=== PATIENT | male | born 1975 | race African-American/Black ===

== ENCOUNTER 2024-06-04 13:31 | Inpatient (IN) | payer OTHER, SELFPAY ==
[2024-06-03 22:41] VITALS: BP 173/102; BMI 34.8
[2024-06-03 22:43] VITALS: BP 173/102
[2024-06-03] MEDS: BENADRYL 50 MG IV (22:47)
[2024-06-03] MEDS: PEPCID 20 MG IV (22:47)
[2024-06-03] MEDS: NSS 1000 IV (22:47)
[2024-06-03] MEDS: DECADRON 10 MG IV (22:47)
[2024-06-03] MEDS: ADRENALIN 0.3 MG IM (22:47)
--- NOTE | 2024-06-03 22:58 | ED.GENMED ---
History of Present Illness
<ANGELLA Karimi - Last Filed: 06/04/24 07:07>
General
Chief Complaint: Allergic Reaction
Source: patient and significant other
Exam Limitations: none
Time Seen by Provider: 06/03/24 22:43
Nursing documentation reviewed up to this point in time: agreed with
History of Present Illness
History of Present Illness:
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 Pt states he was at home in the shower when the episode began. Pt's states they ate tuna, chickpeas and greens for dinner
and used a new seasoning, but they have used it before without reaction like this. Pt states he took Benadryl and administered his Epipen, along with use of his albuterol inhaler before arrival to the ED. Pt is currently experiencing angioedema. Pt
denies n/v/d, chest pain, abdominal pain, numbness/tingling in extremities.
Past History
<ANGELLA Karimi - Last Filed: 06/04/24 07:07>
Past History
ED Past Medical History: Asthma and HTN
ED Past Surgical History: None
Patient has exhibited threatening behavior?: No
Social History
Tobacco: Non-smoker
Alcohol: Daily
Drug: None
Personal:
Living: with family
Employment: Not employed
Family History
Family History: Hypertension and Cancer
Review of Systems
<ANGELLA Karimi - Last Filed: 06/04/24 07:07>
Review of Systems
Allergies reviewed?: Yes
Constitutional: Denies fever, fatigue or chills
EENT: Reports tearing, mouth swelling, runny nose and other (periorbital edema)
Respiratory: Reports trouble breathing
Cardiac: Denies chest pain, palpitations or syncope
ABD/GI: Denies abdominal pain, nausea, vomiting or diarrhea
: Denies incontinence
Skin: Reports itching
Neurological: Denies headache, weakness or numbness
Phy Exam
<ANGELLA Karimi - Last Filed: 06/04/24 07:07>
General Physical Exam
General Presentation: severe distress
General age: appears stated age
General Skin: diaphoretic, feels hot and flushed
General Habitus: normal
General Mental: alert and anxious
ENT Exam
ENT Exam: other (tracheal edema)
Additional ENT: angioedema presents, excessive clear nasal discharge
Eye Exam
Eye Exam: other (severe periorbital edema b/l, tearful)
Eyelid Exam: edematous: Bilateral
Cardiovascular Exam
Cardiovascular Exam: no murmur and tachycardia
Heart Sounds: normal
Pulmonary Exam
Pulmonary Exam: lungs clear and no stridor
Respiratory Effort: hyperventilation (24 breaths/min)
Respirations: moderate effort and rapid
Neurological Exam
Neurological Exam: alert and oriented x3
Course
<ANGELLA Karimi - Last Filed: 06/04/24 07:07>
Orders/Labs/Results
Orders:
Orders
06/03/24 22:43
Cardiac Monitoring- Treatment ONCE
0.9% Sodium Chloride 1000 ml [Nss] 1,000 ml IV BOLUS
Dexamethasone Sod Phosphate [Decadron] 10 mg IV NOW STA
Diphenhydramine [Benadryl] 50 mg IV NOW STA
EPINEPHrine PF [Adrenalin] 0.3 mg IM NOW STA
Famotidine [Pepcid] 20 mg IV NOW STA
Pulse Ox/cont/shift [RESP] Stat
Quantity: 1
06/03/24 23:23
Ipratropium/Albuterol Sulfate [Duoneb] 3 ml .ROUTE .STK-MED ONE
06/03/24 23:34
Ipratropium/Albuterol Sulfate [Duoneb] 3 ml INH R NOW ONE
06/03/24 23:42
EPINEPHrine 4 mg/250 mL NSS [Adrenalin] 4 mg in 250 ml IV NOW
Initial dose in mcg/min, then titrate:: 5
Titrate to keep:: Other
Titrate to keep other:: anaphylaxis
Titrate by mcg/min:: 0.5-1 mcg/min
Frequency of titrations (minutes):: 5
Maximum dose in mcg/min:: 10
Begin to taper infusion when:: Remained at goal for 4hrs
Taper by mcg/min:: 0.5-1 mcg/min
Frequency of taper (minutes) if patient maintains goal:: 30
Taper to off?: Yes
If infusion off & no longer maintaining goal:: Contact Provider
06/04/24 03:16
Admit/Transfer Patient As Directed
Co-Sign Provider:
Level of Care: Observation services
Assign to:: ICU
Physician / Group: hospitalist
Diagnosis: allergic reaction
PRN Pain Medication Management As Directed
May give lesser potent ordered pain med per pt: Yes
preference::
Protocol:: Medication orders for pain may be administered in a
manner that supports deferring to patient preference
when the pt is:
- Requesting an ordered lesser potent pain medication.
Least to most potent pain medications are defined
as: acetaminophen < NSAID < tramadol < opioids
(morphine, oxycodone, hydromorphone).
- Requesting a lesser dose of the same medication IF
ORDERED.
- Requesting a less intrusive route of administration
if both routes are prescribed by the provider (PO <
IV).
06/04/24 03:17
Code Status As Directed
Resuscitation Status: Full Code
06/04/24 03:32
PRN Pain Medication Management As Directed
May give lesser potent ordered pain med per pt: Yes
preference::
Protocol:: Medication orders for pain may be administered in a
manner that supports deferring to patient preference
when the pt is:
- Requesting an ordered lesser potent pain medication.
Least to most potent pain medications are defined
as: acetaminophen < NSAID < tramadol < opioids
(morphine, oxycodone, hydromorphone).
- Requesting a lesser dose of the same medication IF
ORDERED.
- Requesting a less intrusive route of administration
if both routes are prescribed by the provider (PO <
IV).
06/04/24 05:37
0.9% Sodium Chloride 1000 ml [Nss] 1,000 ml IV 75 mls/hr
Acetaminophen [Tylenol] 650 mg PO Q4HPRN PRN
EPINEPHrine 4 mg/250 mL NSS [Adrenalin] 4 mg in 250 ml IV PER PROTOCOL
Currently infusing. Continue current dose and titrate:: Yes
Titrate to keep:: MAP > 65 mmHg
Titrate by mcg/min:: 0.5-1 mcg/min
Frequency of titrations (minutes):: 5
Maximum dose in mcg/min:: 10
Begin to taper infusion when:: Remained at goal for 4hrs
Taper by mcg/min:: 0.5-1 mcg/min
Frequency of taper (minutes) if patient maintains goal:: 30
Taper to off?: Yes
If infusion off & no longer maintaining goal:: Contact Provider
Ondansetron Injectable [Zofran] 4 mg IV Q6HPRN PRN
06/04/24 05:37
Consult Notification Routine
Specialty to Notify: Dealer Support Technician
Dealer Support Technician Consult Routine
Consulting Provider: Cayden Mills
Was physician already notified: No
Reason for consult: anaphylaxis
Activity As Directed
Activity Level: With Assistance
Pneumatic Compression Sleeves As Directed
Type: Knee high
Vital Signs As Directed
Frequency: Per unit guidelines
DX Deep Vein Thrombosis Video Routine
06/04/24 Breakfast
NPO
Allow oral meds: Yes
Allow clear liquids: Sips of Clears
NPO with Ice Chips: Yes
Diphenhydramine [Benadryl] 25 mg IV Q6H
06/04/24 08:00
Albuterol Nebs [Ventolin Nebules] 2.5 mg INH R QID
06/04/24 18:00
Enoxaparin Sodium [Lovenox] 40 mg SC QPM
Vital Signs
Initial and Last Documented VS:
Initial Vital Signs
Pulse Resp BP Pulse Ox
125 24 173/102 95
06/03/24 22:41 06/03/24 22:41 06/03/24 22:41 06/03/24 22:41
Last Documented Vital Signs
Temp Pulse Resp BP Pulse Ox
97.7 F 67 21 118/81 96
06/04/24 07:36 06/04/24 07:30 06/04/24 07:30 06/04/24 07:00 06/04/24 07:22
<Monica Warner, DO - Last Filed: 06/04/24 07:48>
Orders/Labs/Results
Orders:
Orders
06/03/24 22:43
Cardiac Monitoring- Treatment ONCE
0.9% Sodium Chloride 1000 ml [Nss] 1,000 ml IV BOLUS
Dexamethasone Sod Phosphate [Decadron] 10 mg IV NOW STA
Diphenhydramine [Benadryl] 50 mg IV NOW STA
EPINEPHrine PF [Adrenalin] 0.3 mg IM NOW STA
Famotidine [Pepcid] 20 mg IV NOW STA
Pulse Ox/cont/shift [RESP] Stat
Quantity: 1
06/03/24 23:23
Ipratropium/Albuterol Sulfate [Duoneb] 3 ml .ROUTE .STK-MED ONE
06/03/24 23:34
Ipratropium/Albuterol Sulfate [Duoneb] 3 ml INH R NOW ONE
06/03/24 23:42
EPINEPHrine 4 mg/250 mL NSS [Adrenalin] 4 mg in 250 ml IV NOW
Initial dose in mcg/min, then titrate:: 5
Titrate to keep:: Other
Titrate to keep other:: anaphylaxis
Titrate by mcg/min:: 0.5-1 mcg/min
Frequency of titrations (minutes):: 5
Maximum dose in mcg/min:: 10
Begin to taper infusion when:: Remained at goal for 4hrs
Taper by mcg/min:: 0.5-1 mcg/min
Frequency of taper (minutes) if patient maintains goal:: 30
Taper to off?: Yes
If infusion off & no longer maintaining goal:: Contact Provider
06/04/24 03:16
Admit/Transfer Patient As Directed
Co-Sign Provider:
Level of Care: Observation services
Assign to:: ICU
Physician / Group: hospitalist
Diagnosis: allergic reaction
PRN Pain Medication Management As Directed
May give lesser potent ordered pain med per pt: Yes
preference::
Protocol:: Medication orders for pain may be administered in a
manner that supports deferring to patient preference
when the pt is:
- Requesting an ordered lesser potent pain medication.
Least to most potent pain medications are defined
as: acetaminophen < NSAID < tramadol < opioids
(morphine, oxycodone, hydromorphone).
- Requesting a lesser dose of the same medication IF
ORDERED.
- Requesting a less intrusive route of administration
if both routes are prescribed by the provider (PO <
IV).
06/04/24 03:17
Code Status As Directed
Resuscitation Status: Full Code
06/04/24 03:32
PRN Pain Medication Management As Directed
May give lesser potent ordered pain med per pt: Yes
preference::
Protocol:: Medication orders for pain may be administered in a
manner that supports deferring to patient preference
when the pt is:
- Requesting an ordered lesser potent pain medication.
Least to most potent pain medications are defined
as: acetaminophen < NSAID < tramadol < opioids
(morphine, oxycodone, hydromorphone).
- Requesting a lesser dose of the same medication IF
ORDERED.
- Requesting a less intrusive route of administration
if both routes are prescribed by the provider (PO <
IV).
06/04/24 05:37
0.9% Sodium Chloride 1000 ml [Nss] 1,000 ml IV 75 mls/hr
Acetaminophen [Tylenol] 650 mg PO Q4HPRN PRN
EPINEPHrine 4 mg/250 mL NSS [Adrenalin] 4 mg in 250 ml IV PER PROTOCOL
Currently infusing. Continue current dose and titrate:: Yes
Titrate to keep:: MAP > 65 mmHg
Titrate by mcg/min:: 0.5-1 mcg/min
Frequency of titrations (minutes):: 5
Maximum dose in mcg/min:: 10
Begin to taper infusion when:: Remained at goal for 4hrs
Taper by mcg/min:: 0.5-1 mcg/min
Frequency of taper (minutes) if patient maintains goal:: 30
Taper to off?: Yes
If infusion off & no longer maintaining goal:: Contact Provider
Ondansetron Injectable [Zofran] 4 mg IV Q6HPRN PRN
06/04/24 05:37
Consult Notification Routine
Specialty to Notify: Dealer Support Technician
Dealer Support Technician Consult Routine
Consulting Provider: Cayden Mills
Was physician already notified: No
Reason for consult: anaphylaxis
Activity As Directed
Activity Level: With Assistance
Pneumatic Compression Sleeves As Directed
Type: Knee high
Vital Signs As Directed
Frequency: Per unit guidelines
DX Deep Vein Thrombosis Video Routine
06/04/24 Breakfast
NPO
Allow oral meds: Yes
Allow clear liquids: Sips of Clears
NPO with Ice Chips: Yes
Diphenhydramine [Benadryl] 25 mg IV Q6H
06/04/24 08:00
Albuterol Nebs [Ventolin Nebules] 2.5 mg INH R QID
06/04/24 18:00
Enoxaparin Sodium [Lovenox] 40 mg SC QPM
Vital Signs
Initial and Last Documented VS:
Initial Vital Signs
Pulse Resp BP Pulse Ox
125 24 173/102 95
06/03/24 22:41 06/03/24 22:41 06/03/24 22:41 06/03/24 22:41
Last Documented Vital Signs
Temp Pulse Resp BP Pulse Ox
97.7 F 67 21 118/81 96
06/04/24 07:36 06/04/24 07:30 06/04/24 07:30 06/04/24 07:00 06/04/24 07:22
<ANGELLA Karimi - Last Filed: 06/04/24 07:07>
MDM/Problems Addressed
Differential Diagnosis Includes:
anaphylaxis, respiratory decompensation
Chronic conditions affecting care: Immunosuppressed (chronic allergies)
<ANGELLA Karimi - Last Filed: 06/04/24 07:07>
*Critical Care Note
Total Time (30-74mins, 75-104mins- exclusive of procedures): 60 min
<DO Kd Marshall Last Filed: 06/04/24 07:48>
*Pulse Oximetry
Patient hypoxic: no
*Actuarial Director Interpretation
Rate: tachycardiac
Interpretation: abnormal
Rhythm: sinus
*Critical Care Note
comment:
Critical care statement: A total of 60 minutes of critical care time was provided for this patient. This includes management of unstable vital signs, evaluation of the patient at bedside, reviewing the patient's pertinent medical records, discussion
with consultants, review of old EKGs and review of pertinent medical records. This time with separate from time utilized to perform the aforementioned documented procedures
ED Attending Note
<ANGELLA Karimi - Last Filed: 06/04/24 07:07>
-
Portions of this chart may have been created with voice recognition software.� Occasional wrong word or��sound alike� substitutions may have occurred due to the inherent limitations of voice recognition software.
<Monica Warner DO - Last Filed: 06/04/24 07:48>
ED Attending Note
Patient seen and examined by attending physician: Yes
I performed the substantive portion of visit, reviewed & personally made and approve the management plan that is documented in note by myself or IDA.: Yes
ED Attending Note:
This is a 48-year-old gentleman who has history of asthma, hypertension as well as history of multiple food allergies with anaphylaxis. He presents with abrupt onset of anaphylactic reaction that began just prior to arrival. He administered his
EpiPen and took 50 mg of Benadryl just prior to arrival. He states EpiPen was . He complains of generalized itching, hives, periorbital edema, throat swelling and sneezing. He has had similar allergic reactions in the past with similar
presentation to this ED November 2022.
He denies abdominal pain nor nausea, denies diarrhea.
He is unclear as to the exact trigger of his allergic reaction.
GENERAL: 48-year-old overweight gentleman appears his stated age, appears in moderate distress, frequent sneezing but able to speak in full sentences. Moderately anxious. is at bedside.
EYE: Moderate bilateral periorbital edema/angioedema. Moderate tearing bilateral eyes.
NECK: Supple, nontender, no meningismus, no significant adenopathy.
ENT: Mild uvular edema with mild uvular injection but no airway compromise, oral mucosa is moist. TM clear b/l, nares have moderate clear rhinorrhea.
CARDIAC: Regular rhythm, mildly tachycardic. no murmur.
LUNGS: Clear breath sounds bilaterally, no acute respiratory distress, no wheezes/rales/rhonchi
ABDOMEN: Soft, nondistended, without focal tenderness, normoactive BS.
NEUROLOGICAL: Alert and oriented x3, no focal neuro deficits. Gait is steady.
SKIN: Warm and dry, normal color, skin intact. Scattered urticarial wheals.
MUSCULOSKELETAL: No C/C/E. peripheral pulses are full and equal b/l. No palpable tenderness.
PSYCH: Mildly anxious. Easily communicative.
Patient presents with acute allergic reaction/anaphylactic reaction.
Will give an additional IM dose of epinephrine along with IV fluids, IV Benadryl, Pepcid, Decadron.
Thus far hemodynamically stable and no respiratory distress, airway is patent.
Will continue to monitor closely.
At this point no indication for laboratory studies nor imaging.
23:45
Patient continues with significant nasal congestion, periorbital edema and moderate uvular edema. He remains hemodynamically stable.
Has been given DuoNeb nebulizer for onset of mild wheezing.
Will initiate epi drip for continued anaphylaxis.
02:15
Hives have nearly resolved.
Patient resting comfortably, hemodynamically stable with no further tachycardia nor hypertension.
Continues with moderate periorbital angioedema as well as mild posterior pharyngeal angioedema, improved but has not resolved.
Although improved, due to persistent symptoms will admit to hospitalist service for continued close observation.
Discharge Plan
Departure
Patient Disposition: Admit
Date of Disposition: 06/04/24
Time of Disposition: 02:19
Admit to: ICU
Admit to doctor: Allison
Presentation/result/management discussed w/ accepting MD/DO: Hospitalist
Condition: Serious
Discharge Problem:
Anaphylaxis
Interventions
Interventions:
*Risk Screen - Suicide Last Done: 06/03/24 23:03
*General Assessment Last Done: 06/03/24 22:41
*Neglect/Abuse Screening Last Done: 06/03/24 23:38
ED- Fall Risk Assessment Last Done: 06/03/24 23:07
*ED COVID-19 Vaccine History Last Done: 06/03/24 22:41
*Nursing Disposition Last Done: 06/04/24 05:06
ED- Cardiac Assessment Last Done: 06/03/24 23:07
ED- Pulmonary Assessment Last Done: 06/03/24 23:07
ED-Skin Assessment Last Done: 06/03/24 23:07
Discharge Date and Time
Discharge Date/Time: 06/04/24 05:07
[2024-06-03 23:00] VITALS: BP 146/85
[2024-06-03] MEDS: DUONEB 3 ML INH (23:34)
[2024-06-03 23:50] VITALS: BP 140/80
[2024-06-03] MEDS: ADRENALIN 250 IV (23:57)
[2024-06-04] VITALS (20 sets, daily range): BP systolic 118–146; BP diastolic 69–89; BMI 33.5
--- NOTE | 2024-06-04 03:06 | HPS.HSE ---
Family Physician
-
Family Physician: NOT KNOW UNKNOWN - PT DOES
Chief Complaint
-
Allergic reaction
History of Present Illness
This is a 48-year-old with past medical history of anaphylaxis with food allergies, hypertension, asthma who experienced anaphylactic episode a few minutes prior to coming to the emergency department.
Patient reported that he had soon male blood was unsure what it was contaminated with nuts. He developed a sensation of itchy nostrils which often is the initial symptom of with severe anaphylactic episode. He gave himself the EpiPen at home, 2
doses of Benadryl and then came to the emergency department. He reported having some wheezing. On arrival in the emergency department he had significant periorbital angioedema and moderate postpharyngeal angioedema with wheezing.
Has received 3mg epi IM and placed on epi gtt in ED. Rceived IV decadron, benadryl and duonebs. Acccording to spouse patient is significantly improved. He feels better. No more wheezing. Reports some sensation the posterior pharynx.
Medical History
Past Medical History
Past Medical History: Reports Asthma
Additional Past Medical History:
Allergy w/ anaphylaxis
Past Surgical History: Reports None
Social History
Tobacco: Non-smoker
Alcohol: Daily
Drug: None
Personal:
Living: With Family
Employment: Employed
Family History
Family History: Not pertinent
Allergies / Home Medications
Allergies reflects when Allergies were last updated in [facility].
Home Medications with original date entered in [facility]
Allergy/Medication List:
Allergies
Allergy/AdvReac Type Severity Reaction Status Date / Time
nut - unspecified Allergy Severe Anaphylaxis Verified 06/03/24 22:56
fish derived Allergy Unknown Verified 06/03/24 22:56
peanut Allergy Anaphylaxis Verified 06/03/24 22:56
Penicillins Allergy Unknown Verified 06/03/24 22:56
Home Medications
diphenhydramine HCl 25 mg capsule (Benadryl) 25 mg PO TID PRN allergy symptoms #20 caps 12/25/22
epinephrine 0.3 mg/0.3 mL injection, auto-injector (EpiPen) 0.3 mg (0.3 mL) IM .STAT PRN anaphylaxis #2 ea 12/25/22
prednisone 50 mg tablet 50 mg PO DAILY #4 tabs 12/25/22
epinephrine 0.3 mg/0.3 mL injection, auto-injector (EpiPen) 0.3 mg (0.3 mL) IM .STAT PRN anaphylaxis #1 ea 04/21/23
prednisone 50 mg tablet 50 mg PO DAILY #4 tabs 04/21/23
Review of Systems
-
History Source: Patient and Family
Constitutional: Reports No Symptoms
EENT: Reports Mouth Swelling
Respiratory: Reports Trouble Breathing
Cardiac: Reports No Symptoms
Abdomen/GI: Reports No Symptoms
: Reports No Symptoms
Musculoskeletal: Reports No Symptoms
Skin: Reports No Symptoms
Neurological: Reports No Symptoms
Endocrine: Reports No Symptoms
Hematologic/Lymphatic: Reports No Symptoms
Psych: Reports No Symptoms
Physical Exam
Vital Signs
Vital Signs
Pulse Resp BP Pulse Ox
82 20 140/77 96
06/04/24 02:15 06/04/24 02:15 06/04/24 02:00 06/04/24 02:15
Physical Exam
General: Well Developed, Well Nourished, Comfortable and Conversant
HEENT: Anicteric, Moist mucous membranes, Atraumatic, PERRLA, Pharyngeal Erythema and Other (Periorbital edema bilaterally. There is palatal and pharyngeal edema. No tongue swelling. No lip swelling.)
Respiratory: Clear
Cardiac: S1/S2 and Regular Rhythm
Breast: Deferred by me
GI: Soft, Non Tender and Non Distended
Rectal: Deferred by Provider
Genito-urinary: Deferred by me
Musculoskeletal: No Clubbing, No Cyanosis and No Edema
Skin: Warm
Neuro: AO x 3
Hematologic/Lymphatic: No Lymphadenopathy
Psych: Calm
Data Reviewed
-
Lab Data: Discussed with Physician
Old Records: Reviewed
Impression/Plan
-
IMPRESSION:
Acute allergic episode with anaphylaxis. BP maintained throughout and no airway compromise. Currently remains with periorbital swelling and mild palato-pharyngeal edema. No stridor and no wheezes. No current airway edema or compromise.
- admit to ICU observation
- s/p 3mg IM epinephrine. On epi gtt. Continue infusion at 0.1mcg/kg/minute titrating according to BP and cardiac rate. Will titrate off in 4 - 8 hours if HD stable.
- s/p NS bolus. HD stable. NPO for now. Continue NS at 75ml/hr
- s/p diphenydramine 50mg, continue 25mg iv q6 for now
- s/p decadrone. Daily dose given. consider repeat dosing in 12 hours
- continue albuterol q 6 RTC and prn
- consult pin ticket machine operator
DVT PPX - SCDs
Code Status - Full Code
[2024-06-04 05:31] LABS: Hematocrit 38.6 % (39.0-52.0); Hemoglobin 12.1 g/dL (13.0-18.0); Mean Corp Hgb Conc. 31.3 g/dL (33.0-37.0); Mean Corpuscular Hgb 30.3 pg (27.0-31.0); Mean Corpuscular Volume 96.7 fL (80.0-94.0); Mean Platelet Volume 10.1 fL (7.4-10.4); Platelet Count 294 10^3/uL (130-400); Red Blood Cell Count 3.99 10^6/uL (4.70-6.10); Red Cell Dist. Width 12.1 % (11.5-14.5); White Blood Cell Count 11.7 10^3/uL (4.8-10.8)
[2024-06-04 05:42] LABS: Blood Urea Nitrogen 16 mg/dl (9-20); Calcium 9.8 mg/dl (8.4-10.2); Carbon Dioxide 22 mmol/L (22-30); Chloride 105 mmol/L (98-107); Estimated Creatinine Clearance > 125 ml/min; Glucose 161 mg/dl (70-99); Magnesium 1.6 mg/dl (1.6-2.3); Potassium 4.3 mmol/L (3.5-5.1); Sodium 142 mmol/L (135-145); eGFR > 60.00
--- NOTE | 2024-06-04 05:49 | PTCARENOTE ---
Pt admit from ED via stretcher. Moved from stretcher to bed independently. NSR on monitor. Epi gtt turned off after BP checked and was 131/77. Bilat orbital edema noted. Pt denies difficulty breathing or swallowing. Assessment as charted.
[2024-06-04] MEDS: NSS 1000 IV (05:55)
[2024-06-04] MEDS: BENADRYL 25 MG IV ×3 (05:56→17:00)
[2024-06-04 06:04] LABS: APTT 24.4 Sec (23.4-35.0); INR 1.04; PT 13.9 Sec (11.4-14.6)
[2024-06-04] MEDS: VENTOLIN NEBULES 2.5 MG INH ×4 (07:19→20:20)
--- NOTE | 2024-06-04 08:25 | PTCARENOTE ---
Rec'd pt at 0700. Pt AAOx3, follows commands, VERDUGO. Denies any pain/SOB. +Orbital edema, pt c/o mild itching but tolerable. No oral edema noted. Monitor SBR/SR. Lungs CTA. +BS, abd soft/nt. NPO at this time until seen by speech. Vdg yellow urine via
urinal. at bedside, updated.
[2024-06-04] MEDS: DECADRON 4 MG IV ×2 (08:27→17:02)
[2024-06-04] MEDS: NSS (PRESERVATIVE FREE) 8 ML IV ×2 (09:29→20:04)
[2024-06-04] MEDS: PEPCID 20 MG IV ×2 (09:29→20:03)
--- NOTE | 2024-06-04 09:46 | CON.INTV ---
Consultation
Consultation Request
Date/Time Consultation Requested: 06/04/2024536
Date/Time Consultation Performed: 06/04/2024819
Requesting Provider: Dr. Cooper
Performing Provider: Dr. Mills
Reason for Consultation: Anaphylaxis
Medical History
-
Chief Complaint: Facial swelling + hives
History of Present Illness:
48-year-old male non-smoker with a past medical history of severe nut allergy, allergic rhinitis, mild intermittent asthma, and ENRIQUE on CPAP who presents with facial swelling and hives. He does not know what he ate but he believes he had exposure to
nuts possibly from a tuna steak that he ate with some seasoning. He took 100 mg of Benadryl at home and administered EpiPen and inhaler. He also endorsed wheezing. He had periorbital edema in the ER with pharyngeal edema with wheezing. In the ER
he was tachycardic to 125, breathing at 24 breaths/min, BP 173/102 and saturating 95% on room air. Labs showed mild leukocytosis to 11.7 and Hb 12.1. CXR showed no acute disease of the chest. In the ER he was given Benadryl, Decadron, Pepcid,
DuoNebs, 1 L NS 0.9%, epinephrine 0.3 mg and then started on a epinephrine drip. He was then admitted to the ICU for further care and elastic attacher zigzag services consulted for additional management/recommendations.
When I saw the patient this morning he was off the epinephrine drip and he is feeling better. His , Leeanne, was at bedside and all questions were answered. Patient's heart rate is 81 and BP is 118/81. He currently denies chest pain,
difficulty breathing, CALLE, nausea, fevers or chills.
Of note, patient had previously seen us in the office in August [address] Gamez for ENRIQUE. At that time he was using his CPAP. Also has a history of mild intermittent asthma that was controlled without inhalers. In epic it was prescribed to him
at that time to be used as needed. He was told to follow-up with us in 6 weeks but this never happened.
PMHx: Coronary laceration (2000), allergic rhinitis, ENRIQUE on CPAP (diagnosed with ENRIQUE in 2015 at [facility]), mild intermittent asthma not on inhalers
PSHx: Eyelid growth removal (right eye)
Past Medical History
Past Medical History: Other (Above as per HPI)
Past Surgical History: Other (Above as per HPI)
Social History
Tobacco: Non-smoker
Alcohol: Occasional
Drug: None
Personal:
Living: With Family
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
Family History
Family History: Cancer (Mother (unknown type)), Hypertension (Father, mother paternal grandparents and paternal uncle) and Other (Father: Renal failure)
Allergies / Home Medications
Allergies
Allergy/AdvReac Type Severity Reaction Status Date / Time
nut - unspecified Allergy Severe Anaphylaxis Verified 06/03/24 22:56
fish derived Allergy Unknown Verified 06/03/24 22:56
peanut Allergy Anaphylaxis Verified 06/03/24 22:56
Penicillins Allergy Unknown Verified 06/03/24 22:56
Home Medications
�Medication �Instructions �Recorded �Confirmed �Last Taken �Type
diphenhydramine HCl 25 mg capsule 25 mg PO TID PRN allergy symptoms 12/25/22 Unknown Rx
(Benadryl) #20 caps
epinephrine 0.3 mg/0.3 mL 0.3 mg (0.3 mL) IM .STAT PRN 12/25/22 Unknown Rx
injection, auto-injector (EpiPen) anaphylaxis #2 ea
prednisone 50 mg tablet 50 mg PO DAILY #4 tabs 12/25/22 Unknown Rx
epinephrine 0.3 mg/0.3 mL 0.3 mg (0.3 mL) IM .STAT PRN 04/21/23 Unknown Rx
injection, auto-injector (EpiPen) anaphylaxis #1 ea
prednisone 50 mg tablet 50 mg PO DAILY #4 tabs 04/21/23 Unknown Rx
Review of Systems
-
History Source: Patient
All other systems: Negative unless noted
Vitals / Labs / Diagnostic Testing
Vital Signs
Temp Pulse Resp BP Pulse Ox
97.7 F 67 21 118/81 96
06/04/24 07:36 06/04/24 07:30 06/04/24 07:30 06/04/24 07:00 06/04/24 07:22
Lab Data
06/04/24 04:56
06/04/24 04:56
Laboratory Results
06/04/24
04:56
PT 13.9
INR 1.04
APTT 24.4
Diagnostic Testing:
Physical Exam
-
HEENT: Normocephalic and Anicteric
Cardiovascular: S1/S2, Rub (negative) and Peripheral Edema (negative)
Respiratory: Wheeze (negative), Rales (negative), Rhonchi (negative) and Non-Labored Respirations
GI: Soft, Non Distended, Non Tender and Normal Bowel Sounds
Neurology: AO x 3 and Tremors (negative)
Skin: Warm and Dry
General: Respiratory Distress (negative), Comfortable, Fever (negative) and Chills (negative)
Assessment
-
Assessment: 48-year-old male non-smoker with a past medical history of severe nut allergy, allergic rhinitis, mild intermittent asthma, and ENRIQUE on CPAP who presents with facial swelling and hives. He does not know what he ate but he believes he
had exposure to nuts possibly from a tuna steak that he ate with some seasoning. He took 100 mg of Benadryl at home and administered EpiPen and inhaler. He also endorsed wheezing. He had periorbital edema in the ER with pharyngeal edema with
wheezing. In the ER he was tachycardic to 125, breathing at 24 breaths/min, BP 173/102 and saturating 95% on room air. Labs showed mild leukocytosis to 11.7 and Hb 12.1. CXR showed no acute disease of the chest. In the ER he was given Benadryl,
Decadron, Pepcid, DuoNebs, 1 L NS 0.9%, epinephrine 0.3 mg and then started on a epinephrine drip. He was then admitted to the ICU for further care and elastic attacher zigzag services consulted for additional management/recommendations.
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
Impression:
#Acute anaphylactic reaction s/p epinephrine IM currently on epinephrine drip
#Leukocytosis likely reactive due to above
#Anemia
#History of peanut + shellfish allergy
#History of mild intermittent asthma not on inhalers
#History of allergic rhinitis/conjunctivitis
#ENRIQUE on CPAP
Plan:
- Now off epinephrine drip; continue to monitor respiratory status closely as he remains low threshold to be intubated if Sx return
- Continue with Benadryl + Pepcid + steroids (currently on Decadron 4 mg IV q8hr)
- Wean down on systemic steroids as he clinically continues to improve
- Maintain euglycemia while on high-dose steroids with goal BG 140�180
- Check tryptase level and total IgE
- Trend WBC; appears nontoxic, hence hold off on antibiotics at this time; monitor for fevers
- Maintain SpO2 >90-94% - currently on RA breathing comfortably
- Maintain MAP>65
- Replete electrolytes with K>4, Mg>2
- Maintain euglycemia with goal BG 140-180
- Trend H/H and transfuse if needed to keep Hb>7g/dL; keep plt>20k, unless there is concern for bleeding then keep plt>50k
- prn nebulized bronchodilators - not currently bronchospastic
- Incentive spirometer encouraged 10x per hour for at least 4 hrs a day
- DVT ppx: LMWH
Outpatient follow-up will be arranged given his history of ENRIQUE on CPAP and he previously had seen us in 2021 w/ Dr. Gamez.
Critical care statement: A total of 40 minutes of critical care time was provided for this patient today. This includes management of unstable vital signs, evaluation of the patient at bedside, reviewing the patient's pertinent medical records
including radiographs, microbiology, laboratory evaluations, and discussion with primary team, consultants, pharmacy, nutrition, physical therapy, case management, charge nurse, critical care nursing, and respiratory therapy.
--- NOTE | 2024-06-04 10:31 | PTOTSP ---
Speech Therapy Evaluation:
Pt's oropharyngeal swallow grossly WFL. Pt with angioedema, however does not appear to be impacting overall swallow function. Pt with no overt s/sx of aspiration throughout PO trials and successfully completed 3oz water test. Suspicion for prandial
aspiration remains low.
Recommend:
1. Initiate IDDSI Level 7 (regular) solids and thin liquids
2. Medications as tolerated
3. General aspiration precautions
4. FIRE TECHNOLOGY INSTRUCTOR to s/o - please reconsult if further concerns arise
--- NOTE | 2024-06-04 12:13 | PTCARENOTE ---
No changes in assessment, resting comfortably in bed. Ambulating in room when awake.
--- NOTE | 2024-06-04 13:19 | W.PN.UPDATE ---
Update Note
Progress Note Update
Non-billable addendum (H&P at 3 AM today)
Patient admitted with anaphylaxis with shock (possibly from food ingestion) requiring Epi drip. Epi drip was weaned off this AM.
Placed on IV steroids
Reported his swelling was improving
denies any SOB
Plan: continue IV steroids, IV Benadryl and Pepcid, prn nebs. Later today can transfer out of ICU if stable. start diet. Should plan to see his equip tech post-hospitalization. follow ICU recs.
--- NOTE | 2024-06-04 16:16 | PTCARENOTE ---
No changes in assessment, tolerating regular diet. at bedside.
--- NOTE | 2024-06-04 16:39 | CM ---
Initial assessment completed with pt at bedside.
Pt is indep at baseline and anticipates being able to dc to home at discharge with no needs
PCP; Logan Cooper
Pharm; [facility]
[2024-06-05] VITALS (10 sets, daily range): BP systolic 112–142; BP diastolic 62–96; BMI 33.4
[2024-06-05] MEDS: BENADRYL 25 MG IV ×2 (00:21→07:16)
[2024-06-05] MEDS: DECADRON 4 MG IV ×2 (00:21→08:28)
--- NOTE | 2024-06-05 00:38 | PTCARENOTE ---
Pt initial assessment as documented. Pt with +1 orbital edema. Breath sounds clear t/o, on RA. Pt offers no complaints, ambulates w/o assistance. Call garcia within reach, repositions self.
[2024-06-05 05:25] LABS: Hematocrit 37.4 % (39.0-52.0); Hemoglobin 11.5 g/dL (13.0-18.0); Mean Corp Hgb Conc. 30.7 g/dL (33.0-37.0); Mean Corpuscular Hgb 29.8 pg (27.0-31.0); Mean Corpuscular Volume 96.9 fL (80.0-94.0); Mean Platelet Volume 10.2 fL (7.4-10.4); Platelet Count 281 10^3/uL (130-400); Red Blood Cell Count 3.86 10^6/uL (4.70-6.10); Red Cell Dist. Width 12.3 % (11.5-14.5); White Blood Cell Count 11.5 10^3/uL (4.8-10.8)
--- NOTE | 2024-06-05 05:42 | PTCARENOTE ---
Orbital edema continues to improve, now trace edema.
[2024-06-05 05:47] LABS: Blood Urea Nitrogen 16 mg/dl (9-20); Calcium 9.7 mg/dl (8.4-10.2); Carbon Dioxide 26 mmol/L (22-30); Chloride 105 mmol/L (98-107); Estimated Creatinine Clearance > 125 ml/min; Glucose 142 mg/dl (70-99); Potassium 4.7 mmol/L (3.5-5.1); Sodium 141 mmol/L (135-145); eGFR > 60.00
[2024-06-05] MEDS: VENTOLIN NEBULES 2.5 MG INH (07:37)
--- NOTE | 2024-06-05 08:00 | PTCARENOTE ---
Received patient from night guard. other than patient having some periorbital edema, assessment is benign. Patient is on room air, sr on monitor. no edema. ambulating independently. Will downgrade or potentially send home.
[2024-06-05] MEDS: PEPCID 20 MG IV (08:27)
[2024-06-05] MEDS: NSS (PRESERVATIVE FREE) 8 ML IV (08:27)
--- NOTE | 2024-06-05 08:35 | W.PN.HOSP.TC ---
Addendum entered and electronically signed by Barb Velásquze MD 06/05/24 14:12:
total DC time 39 min
Original Note:
Today's Communication/Plan
-
see A/P
Assessment / Plan
Assessment / Plan
HPI: 48-year-old with past medical history of anaphylaxis with food allergies, hypertension, asthma who experienced anaphylactic episode a few minutes prior to coming to the emergency department.
He developed a sensation of itchy nostrils which often is the initial symptom of with severe anaphylactic episode. He gave himself the EpiPen at home, 2 doses of Benadryl and then came to the emergency department. He reported having some wheezing.
On arrival in the emergency department he had significant periorbital angioedema and moderate postpharyngeal angioedema with wheezing.
Has received 3mg epi IM and placed on epi gtt in ED. Received IV Decadron, Benadryl and duonebs.
A/P:
# Acute allergic reaction/anaphylaxis.
BP maintained throughout and no airway compromise.
Currently remains with periorbital swelling and mild palato-pharyngeal edema. No stridor and no wheezes. No current airway edema or compromise.
s/p 3mg IM epinephrine. s/p Epi gtt.
s/p NSS bolus. HD stable.
Diet advanced to regular and pt tolerated well
s/p diphenydramine 50mg, continue 25mg iv q6 for now
s/p Decadron. Cont 4 mg Q8H, d/w Architectural Technician, taper off in 48 hours.
albuterol q 6 RTC can be stopped after DC
DVT PPX - SCDs
Code Status - Full Code
DW Architectural Technician
DW RN
Anticipated Discharge: Today
Subjective/Interval History
-
Date of Service: June 05, 2024
Objective Data
-
Labs:
Laboratory Results
12/09/24
05:04
WBC 11.5 H
Hgb 11.5 L
Hct 37.4 L
Plt Count 281
Sodium 141
Potassium 4.7
Chloride 105
Carbon Dioxide 26
BUN 16
Creatinine 0.8
Glucose 142 H
Calcium 9.7
Vital Signs:
Vital Signs
Temp Pulse Resp BP Pulse Ox
36.9 C 74 16 141/85 97
06/05/24 07:34 06/05/24 07:39 06/05/24 07:39 06/05/24 05:00 06/04/24 15:34
I&O
06/04/24 06/05/24 06/06/24
06:59 06:59 06:59
Output Total 900 / 900
Balance -900 / -900
Review of Systems
-
All other systems: Reviewed and negative
Physical Exam
-
General: Well Developed, Well Nourished, No Apparent Distress, Comfortable and Conversant; Negative Respiratory Distress
HEENT: Normocephalic, Atraumatic, Nose Appears Normal and Ears Appear Normal; Negative Oxygen
Respiratory: Clear to Auscultation and Non Labored Respirations; Negative Accessory Resp Muscle Use
Cardiac: Regular Rhythm and S1/S2
GI: Soft, Nontender, Nondistended and Normal Bowel Sounds
Skin: Warm and Dry
Neuro: Awake, Alert, Oriented, AO x 3 and Nonfocal/Grossly Intact
Psych: Calm and Intact Judgement/Insight
Data Reviewed
-
Labs: Labs Reviewed by me
--- NOTE | 2024-06-05 10:26 | PTCARENOTE ---
Patient discharged home after seen by Dr. Bishop. Discharge instructions reviewed, steroid taper sent to pharmacy
--- NOTE | 2024-06-05 10:47 | CM ---
CM following re: discharge planning.
Reviewed pt's chart, met with pt and pt's spouse at bedside.
Pt is a 48 year old male, admitted with primary dx of Allergic reaction.
Pt reports he lives with spouse 2SH, 2 step to enter, has supportive family. 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
Discharge order noted. Both pt and his spouse are aware and spouse stated she will transport pt home.
D/C plan: home with no needs. Spouse to transport.
--- NOTE | 2024-06-05 11:47 | W.PN.INTV ---
Today's Communication / Plan
Recommendations
Taper steroids in the next 24 hours
Discharge today
Signed off
Assessment
-
Assessment: 48-year-old male non-smoker with a past medical history of severe nut allergy, allergic rhinitis, mild intermittent asthma, and ENRIQUE on CPAP who presents with facial swelling and hives. He does not know what he ate but he believes he
had exposure to nuts possibly from a tuna steak that he ate with some seasoning. He took 100 mg of Benadryl at home and administered EpiPen and inhaler. He also endorsed wheezing. He had periorbital edema in the ER with pharyngeal edema with
wheezing. In the ER he was tachycardic to 125, breathing at 24 breaths/min, BP 173/102 and saturating 95% on room air. Labs showed mild leukocytosis to 11.7 and Hb 12.1. CXR showed no acute disease of the chest. In the ER he was given Benadryl,
Decadron, Pepcid, DuoNebs, 1 L NS 0.9%, epinephrine 0.3 mg and then started on a epinephrine drip. He was then admitted to the ICU for further care and tooth cutter spur services consulted for additional management/recommendations.
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
Impression:
#Acute anaphylactic reaction s/p epinephrine IM currently on epinephrine drip
#Leukocytosis likely reactive due to above
#Anemia
#History of peanut + shellfish allergy
#History of mild intermittent asthma not on inhalers
#History of allergic rhinitis/conjunctivitis
#ENRIQUE on CPAP
Plan:
- Now off epinephrine drip;
respiratory status is stable. Able to speak in full sentences, no stridor on exam.
He is back to baseline
Not bronchospastic
Denies shortness of breath
Face swelling resolved-back to baseline
at the bedside.
May discontinue steroids in the next 48 hours.
Patient will follow-up with his ink printer
Okay for discharge today
Sign off
updated at the bedside. Advised the patient to return to the emergency room if symptoms recur.
Subjective Dataa
Subjective Data
Date of Service:
Date of Service: June 05, 2024
Chief Complaint: Television Engineer Follow Up (Anaphylaxis)
Subjective:
Patient feels better
Back to baseline
Denies shortness of breath or wheezing
Ambulated to the restroom
Denies swallowing problems
Review of Systems
Cardiopulmonary: Dyspnea (n) and Cough (n)
GI: Abdominal Pain (n)
Objective Data
Data Reviewed
Vital Signs / I&O / Oxygen:
Vital Signs
Temp Pulse Resp BP Pulse Ox
98.4 F 72 16 130/82 97
06/05/24 07:34 06/05/24 10:00 06/05/24 07:39 06/05/24 10:00 06/04/24 15:34
Intake and Output
06/04/24 06/05/24 06/06/24
06:59 06:59 06:59
Intake Total 240 / 240
Output Total 900 / 900
Balance -900 / -900 240 / 240
SaO2 97
Physical Exam
General: Comfortable
HEENT: Normocephalic
Cardiovascular: S1-S2
Respiratory: Clear and Non-Labored Respirations
GI: Soft and Non Distended
Neurology: Awake, AO x 3 and No Motor Deficits
Skin: Warm
Labs/Micro/Reports
Lab Data
06/05/24 05:04
06/05/24 05:04
--- NOTE | 2024-06-05 14:06 | W.DCSUMMARY ---
Discharge Summary
Discharge Data
Date of Admission: 06/04/24
Date of Discharge: 06/05/24
-
Pending Results: No
Hospital Course
Principal Diagnosis:
Acute allergic reaction/anaphylaxis.
Chronic Diagnoses:�
Anaphylaxis with food allergens
hypertension
Asthma
Consultations:�
Hearing Specialist/pulmonary
Procedures:�
None
Clinical course:�
This is a 48-year-old male with past medical history as stated above, who presented with presumed anaphylactic reaction, which he described as having itchy nostril initially followed by moderate postpharyngeal angioedema with wheezing. He gave
himself EpiPen, 2 doses of Benadryl prior to coming to the emergency room.
Problem 1:
Acute allergic reaction/anaphylaxis.
He had been hemodynamically stable while in the hospital with no airway compromise.
He received epi drip which was weaned off.
He received IV Benadryl and IV Decadron. He can continue with oral prednisone quick taper following discharge.
His diet was advanced to regular which he tolerated well.
As for the rest of his medical problems, they were stable during his hospital stay.
Discharge Plan
-
Patient Disposition: Home (Routine Discharge)
Discharge Diagnosis/Procedures: Acute allergic reaction/anaphylaxis.
Condition: Good
Diet: As tolerated
Activity: As tolerated
Driving Restrictions: As prior to admission
Referrals:
UNKNOWN - PT DOES,NOT KNOW [Family Provider] - in less than 1 week
Additional Discharge Medication Instructions: continue prednisone: take 50 mg and decrease 10 mg every day until off
Prescriptions:
New
prednisone 10 mg Tablet
See Rx Instructions .ROUTE .COMPLEX Qty: 20 0RF
Rx Instructions:
Take By Mouth:
50 mg daily x1 days, 40 mg daily x1 days, 30 mg daily x1 days, 20 mg daily x1 days, 10 mg daily x1 days
Continued
epinephrine [EpiPen] 0.3 mg/0.3 mL Auto-Injector
0.3 mg IM .STAT PRN (Reason: anaphylaxis) Qty: 2 0RF
diphenhydramine HCl [Benadryl] 25 mg capsule
25 mg PO TID PRN (Reason: allergy symptoms) Qty: 20 0RF
epinephrine [EpiPen] 0.3 mg/0.3 mL auto-injector
0.3 mg IM .STAT PRN (Reason: anaphylaxis) Qty: 1 0RF
Discontinued
prednisone 50 mg tablet
50 mg PO DAILY Qty: 4 0RF
prednisone 50 mg tablet
50 mg PO DAILY Qty: 4 0RF
Discharge Orders:
Discharge Patient (As Directed); Ordered 06/05/24
Ordered By: Barb Velásquez
Discharge Date and Time
Discharge Date/Time: 06/05/24 10:37
Print Language: ICELANDIC
[2024-06-07 01:14] LABS: IgE 101 kU/L (<=214)
== END 2024-06-05 10:37 | disposition home or self-care (01) | DRG 916 ==
LOC: ICU 13:31
PROVIDERS: Internal Medicine; Nurse Practitioner Primary Care; ADMITTING PHYSICIAN Internal Medicine; ATTENDING PHYSICIAN Internal Medicine; CONSULT PHYSICIAN Internal Medicine Critical Care Medicine; EMERGENCY PHYSICIAN Emergency Medicine
DX: T78.09XA Anaphylactic reaction due to other food products, initial encounter (principal); T78.3XXA Angioneurotic edema, initial encounter; D64.9 Anemia, unspecified; G47.33 Obstructive sleep apnea (adult) (pediatric); I10 Essential (primary) hypertension; J45.20 Mild intermittent asthma, uncomplicated; E66.3 Overweight; Z68.33 Body mass index [BMI] 33.0-33.9, adult; Z91.013 Allergy to seafood; Z91.018 Allergy to other foods; Z88.0 Allergy status to penicillin; Z79.52 Long term (current) use of systemic steroids
CPT/HCPCS: 71045; 80048; 82785; 83520; 83735; 85027; 85610; 85730; 92610; 93005; 94640; 96361; 96365; 96366; 96372; 96375; 99291

== ENCOUNTER → 2024-12-26 08:09 | Outpatient (REF) | payer OTHER, SELFPAY ==
[2024-12-26 09:32] LABS: Hematocrit 39.4 % (39.0-52.0); Hemoglobin 12.7 g/dL (13.0-18.0); Mean Corp Hgb Conc. 32.2 g/dL (33.0-37.0); Mean Corpuscular Volume 93.4 fL (80.0-94.0); Nucleated Red Blood Cells % 0 % (-); Platelet Count 265 10^3/uL (130-400); Red Cell Dist. Width 11.6 % (11.5-14.5)
[2024-12-26 10:19] LABS: ALT (SGPT) 23 U/L (0-50); AST (SGOT) 30 U/L (17-59); Albumin 4.8 g/dl (3.5-5.0); Alkaline Phosphatase 34 U/L (38-126); Blood Urea Nitrogen 17 mg/dl (9-20); Calcium 9.7 mg/dl (8.4-10.2); Carbon Dioxide 26 mmol/L (22-30); Chloride 106 mmol/L (98-107); Glucose 103 mg/dl (70-99); HDL Cholesterol 86 mg/dl; LDL Cholesterol, Calculated 124 mg/dl; Potassium 4.3 mmol/L (3.5-5.1); Sodium 141 mmol/L (135-145); Total Protein 8.3 g/dl (6.3-8.2); Very Low Density Lipoprotein 7 mg/dl (0-30); eGFR > 60.00
[2024-12-26 10:39] LABS: PSA, Total - Screen 0.45 ng/ml (0.0-4.0); TSH 3.32 uIU/ml (0.47-4.68)
[2024-12-29 08:30] LABS: Blue Mussel <0.10 kU/L (<=0.34); Flounder (Plaice) <0.10 kU/L (<=0.34); Mild Peanut Ara h 8 0.59 kU/L (<=0.09); Severe Peanut Ara h 1 0.18 kU/L (<=0.09); Severe Peanut Ara h 2 0.28 kU/L (<=0.09); Severe Peanut Ara h 3 <0.10 kU/L (<=0.09); Severe Peanut Ara h 6 0.10 kU/L (<=0.09); Severe Peanut Ara h 9 <0.10 kU/L (<=0.09)
== END ==
LOC: REG 08:09
PROVIDERS: ATTENDING PHYSICIAN Internal Medicine; FAMILY PHYSICIAN Internal Medicine; OTHER PHYSICIAN Physician Assistant Medical
DX: Z12.5 Encounter for screening for malignant neoplasm of prostate (principal); I10 Essential (primary) hypertension; E78.2 Mixed hyperlipidemia; Z91.010 Allergy to peanuts; Z91.013 Allergy to seafood; Z91.018 Allergy to other foods; L50.0 Allergic urticaria; T78.3XXD Angioneurotic edema, subsequent encounter
CPT/HCPCS: 36415; 80053; 80061; 84443; 85025; 86003; 86008; G0103

== ENCOUNTER 2025-01-10 12:33 | Emergency (ER) | payer OTHER, SELFPAY ==
[2025-01-10 12:36] VITALS: BP 136/89
[2025-01-10 12:48] VITALS: BMI 32.8
[2025-01-10 12:49] VITALS: BP 128/82
[2025-01-10 13:00] VITALS: BP 125/82
--- NOTE | 2025-01-10 13:02 | ED.GENMED ---
History of Present Illness
General
Chief Complaint: Heart Rate Problem
Source: patient
Exam Limitations: none
Time Seen by Provider: 01/10/25 13:00
History of Present Illness
History of Present Illness:
49yoM with a history of ENRIQUE on CPAP, hypertension, and asthma presenting for evaluation of chest discomfort. His symptoms began yesterday while he was at work. He reports a tightness sensation in the center of his chest which radiates to the back.
He states this is not a pain but a tightness feeling. He states it feels like he has to put an effort in order to take a deep breath. Symptoms do feel better today but are still present. He denies any associated nausea or diaphoresis. Nothing
seems to his chest tightness better or worse. He reports 2 episodes of palpitations over the past month. Both occurred while he was riding his bike. His heart started to race during the episodes and he felt like he had to pass out. He denies any
palpitations or dizziness since yesterday. He was seen by his PCP today and was sent to the ED for evaluation. His PCP ordered a Holter monitor as well as a stress echo.
Past History
Past History
ED Past Medical History: Asthma and HTN
ED Past Surgical History: None
Patient has exhibited threatening behavior?: No
Social History
Tobacco: Non-smoker
Alcohol: Daily
Drug: None
Personal:
Living: with family
Employment: Not employed
Family History
Family History: Hypertension and Cancer
Phy Exam
General Physical Exam
General Presentation: well appearing and no apparent distress
General Skin: warm and dry
General Habitus: normal
General Mental: alert
ENT Exam
ENT Exam: normocephalic
Cardiovascular Exam
Cardiovascular Exam: regular rate/rhythm, no edema, no murmur and normal peripheral pulses (2+ radial pulses bilaterally)
Pulmonary Exam
Pulmonary Exam: lungs clear, no respiratory distress, no rales, no crackles, no rhonchi and no wheezing
Gastrointestinal Exam
Gastrointestinal Exam: non tender, soft and non distended
Neurological Exam
Neurological Exam: alert
[place] Coma Scale
Eye Opening: Spontaneous
Verbal Response: Oriented
Motor Response: Obeys Commands
GCS Total Score: 15
Skin Exam
Skin Exam: normal color and warm/dry
Psychiatric Exam
Psychiatric Exam: normal mood/affect
Course
Orders/Labs/Results
Orders:
Orders
01/10/25 12:27
TSH Urgent
Comment: ADD ON
01/10/25 12:37
EKG [Electrocardiogram (*1)] Urgent
Reason for Study: Vertigo / Dizzy
EKG- Treatment ONCE
01/10/25 12:57
CMP [Comprehensive Metabolic Panel] Urgent
Complete Blood Count/With Diff Urgent
Magnesium Urgent
Troponin I Urgent
01/10/25 13:13
Add On- LAB Urgent
Tests Added?: TSH, magnesium
Cardiac Monitoring- Treatment ONCE
01/10/25 13:15
D-Dimer Urgent
01/10/25 14:20
CR Chest - 2 Views Urgent
Comment:
Reason For Exam: SOB
Abnormal Lab Results
01/10/25
12:57
WBC 4.4 L 10^3/uL
(4.8-10.8)
RBC 4.01 L 10^6/uL
(4.70-6.10)
Hgb 12.1 L g/dL
(13.0-18.0)
Hct 38.1 L %
(39.0-52.0)
MCV 95.0 H fL
(80.0-94.0)
MCHC 31.8 L g/dL
(33.0-37.0)
Absolute Lymphs (auto) 1.0 L 10^3/uL
(1.2-3.4)
Monocytes % 13.5 H %
(1.7-9.3)
Eosinophils % 9.2 H %
(0-6)
Glucose 102 H mg/dl
(70-99)
Alkaline Phosphatase 37 L U/L
(38-126)
01/10/25 12:57
01/10/25 12:57
Vital Signs
Initial and Last Documented VS:
Initial Vital Signs
Temp Pulse Resp BP Pulse Ox
98.9 F 61 18 136/89 98
01/10/25 12:36 01/10/25 12:36 01/10/25 12:36 01/10/25 12:36 01/10/25 12:36
Last Documented Vital Signs
Temp Pulse Resp BP Pulse Ox
98.9 F 56 20 126/81 97
01/10/25 12:36 01/10/25 14:30 01/10/25 14:30 01/10/25 14:00 01/10/25 14:15
MDM/Problems Addressed
Differential Diagnosis Includes:
49yoM here with chest tightness radiating to back x 1 day. Feeling improved today. Sent here by PCP. VSS. He is well appearing in no distress. Exam reassuring. Differential diagnosis includes but is not limited to: ACS, PE, esophagitis,
musculoskeletal, doubt aortic dissection
Initial ED plan: Triage EKG shows sinus bradycardia without ischemic changes. Check cardiac labs, magnesium, TSH, D-dimer, and CXR.
*Pulse Oximetry
SaO2: 97
Oxygen Mode of Delivery: Room air
Patient hypoxic: no (98%)
*EKG
Interpreted by ED Provider?: Yes
EKG Intrepretation Date: 01/10/25
Heart Rate: 59
Rate: bradycardiac
Rhythm: sinus
[place]: normal axis
Interval: normal interval
QRS Pattern: normal QRS
Ischemia: no ischemia
*Critical Care Note
Total Time (30-74mins, 75-104mins- exclusive of procedures): Not Applicable
Update Note
Update Note:
Labs unremarkable including normal troponin. D-dimer normal making PE very unlikely. CXR is clear. No telemetry events during ED stay. No indication for hospitalization. PCP ordered a stress echo and he was advised to call today to schedule this. He
was instructed to avoid exercising until this is complete. Advised close f/u with PCP and strict ED return precautions discussed. He was discharged in stable condition.
ED Attending Note
-
Portions of this chart may have been created with voice recognition software.� Occasional wrong word or��sound alike� substitutions may have occurred due to the inherent limitations of voice recognition software.
Discharge Plan
Departure
Patient Disposition: Home (Routine Discharge)
Date of Disposition: 01/10/25
Time of Disposition: 14:56
Patient with high blood pressure during this ER visit?: No
Discharge Problem:
Chest tightness
Instructions: Chest pain in adults - ED discharge instructions
Prescriptions:
No Action
epinephrine [EpiPen] 0.3 mg/0.3 mL Auto-Injector
0.3 mg IM .STAT PRN (Reason: anaphylaxis) Qty: 2 0RF
diphenhydramine HCl [Benadryl] 25 mg capsule
25 mg PO TID PRN (Reason: allergy symptoms) Qty: 20 0RF
epinephrine [EpiPen] 0.3 mg/0.3 mL auto-injector
0.3 mg IM .STAT PRN (Reason: anaphylaxis) Qty: 1 0RF
prednisone 10 mg Tablet
See Rx Instructions .ROUTE .COMPLEX Qty: 20 0RF
Rx Instructions:
Take By Mouth:
50 mg daily x1 days, 40 mg daily x1 days, 30 mg daily x1 days, 20 mg daily x1 days, 10 mg daily x1 days
Referrals:
Christopher Cooper MD [Family Provider, Internal Medicine]
Activity Restrictions/Additional Instructions:
Call today to schedule your stress test.
Please follow-up closely with your family doctor. Return to the ER immediately with any new or worsening symptoms.
Interventions
Interventions:
*Risk Screen - Suicide Last Done: 01/10/25 12:36
*General Assessment Last Done: 01/10/25 12:36
*Neglect/Abuse Screening Last Done: 01/10/25 12:36
*ED- Fall Risk Assessment Last Done: 01/10/25 12:36
*ED COVID-19 Vaccine History Last Done: 01/10/25 12:36
*Nursing Disposition Last Done: 01/10/25 15:05
ED- Cardiac Assessment Last Done: 01/10/25 12:48
ED- Pulmonary Assessment Last Done: 01/10/25 12:48
Discharge Date and Time
Discharge Date/Time: 01/10/25 15:06
Print Language: OCCITAN
[2025-01-10 13:09] LABS: Hematocrit 38.1 % (39.0-52.0); Hemoglobin 12.1 g/dL (13.0-18.0); Mean Corp Hgb Conc. 31.8 g/dL (33.0-37.0); Mean Corpuscular Volume 95.0 fL (80.0-94.0); Nucleated Red Blood Cells % 0 % (-); Platelet Count 286 10^3/uL (130-400); Red Cell Dist. Width 11.8 % (11.5-14.5)
[2025-01-10 13:24] LABS: AST (SGOT) 25 U/L (17-59); Albumin 4.8 g/dl (3.5-5.0); Alkaline Phosphatase 37 U/L (38-126); Blood Urea Nitrogen 16 mg/dl (9-20); Calcium 10.1 mg/dl (8.4-10.2); Carbon Dioxide 28 mmol/L (22-30); Chloride 106 mmol/L (98-107); Estimated Creatinine Clearance 112 ml/min; Glucose 102 mg/dl (70-99); Potassium 4.3 mmol/L (3.5-5.1); Sodium 137 mmol/L (135-145); Total Protein 7.9 g/dl (6.3-8.2); eGFR > 60.00
[2025-01-10 13:34] LABS: Troponin I < 0.012 ng/ml
[2025-01-10 13:43] LABS: ALT (SGPT) 20 U/L (0-50); Magnesium 1.8 mg/dl (1.6-2.3)
[2025-01-10 14:00] VITALS: BP 126/81
[2025-01-10 14:15] LABS: D-Dimer < 0.27 ug/mlFEU (0.00-0.50)
[2025-01-10 14:38] LABS: TSH 0.79 uIU/ml (0.47-4.68)
== END 2025-01-10 15:06 | disposition home or self-care (01) ==
LOC: EMR 12:33
PROVIDERS: Physician Assistant; EMERGENCY PHYSICIAN Emergency Medicine; FAMILY PHYSICIAN Internal Medicine
DX: R07.89 Other chest pain (principal); R00.2 Palpitations; J45.909 Unspecified asthma, uncomplicated; I10 Essential (primary) hypertension; G47.33 Obstructive sleep apnea (adult) (pediatric); Y99.0 Civilian activity done for income or pay; Z82.49 Family history of ischemic heart disease and other diseases of the circulatory system
CPT/HCPCS: 99283; 71046; 80053; 83735; 84443; 84484; 85025; 85379; 93005

== ENCOUNTER → 2025-01-11 09:26 | Outpatient (REF) | payer OTHER, SELFPAY | LOC: RCS 09:26 | PROVIDERS: ATTENDING PHYSICIAN Student in an Organized Health Care Education/Training Program; FAMILY PHYSICIAN Internal Medicine | DX: R00.0 Tachycardia, unspecified (principal) | CPT/HCPCS: 93225; 93226 ==

== ENCOUNTER → 2025-01-16 17:00 | Outpatient (REF) | payer OTHER, SELFPAY ==
[2025-01-16 17:40] LABS: Urine Character Clear (Clear)
[2025-01-16 17:53] LABS: Urine Red Blood Cell 0-2 /HPF (0-2); Urine White Cell 0-2 /HPF (0-5)
== END ==
LOC: RAD 17:00
PROVIDERS: ATTENDING PHYSICIAN Student in an Organized Health Care Education/Training Program; FAMILY PHYSICIAN Internal Medicine
DX: R10.9 Unspecified abdominal pain (principal); R10.2 Pelvic and perineal pain; N39.0 Urinary tract infection, site not specified
CPT/HCPCS: 74178; 81003; 81015; 87086; Q9967

== ENCOUNTER → 2025-01-18 13:21 | Outpatient (REF) | payer OTHER, SELFPAY | LOC: RCS 13:21 | PROVIDERS: ATTENDING PHYSICIAN Student in an Organized Health Care Education/Training Program; FAMILY PHYSICIAN Internal Medicine | DX: R07.2 Precordial pain (principal) | CPT/HCPCS: 93017; 93350 ==

== ENCOUNTER → 2025-03-12 09:53 | Outpatient (REF) | payer OTHER, SELFPAY ==
[2025-03-12 18:10] LABS: Hematocrit 39.5 % (39.0-52.0); Hemoglobin 11.9 g/dL (13.0-18.0); Mean Corp Hgb Conc. 30.1 g/dL (33.0-37.0); Mean Corpuscular Volume 99.2 fL (80.0-94.0); Nucleated Red Blood Cells % 0 % (-); Platelet Count 269 10^3/uL (130-400); Red Cell Dist. Width 12.5 % (11.5-14.5)
[2025-03-12 18:16] LABS: Blood Urea Nitrogen 14 mg/dl (9-20); Calcium 9.5 mg/dl (8.4-10.2); Carbon Dioxide 26 mmol/L (22-30); Chloride 103 mmol/L (98-107); Glucose 92 mg/dl (70-99); Potassium 4.3 mmol/L (3.5-5.1); Sodium 136 mmol/L (135-145); eGFR > 60.00
[2025-03-12 18:20] LABS: Uric Acid 6.6 mg/dl (3.5-8.5)
== END ==
LOC: CLAB 09:53
PROVIDERS: ATTENDING PHYSICIAN Internal Medicine
DX: M10.072 Idiopathic gout, left ankle and foot (principal)
CPT/HCPCS: 36415; 80048; 84550; 85025